=== PATIENT | male | born 1930 | race Caucasian/White ===

== ENCOUNTER → 2017-08-07 | Outpatient (CLI) | payer BC ==
[~2017-08-07] MED LIST: ACET-1311 PO; DOCU100C22 PO; FRRS300 PO; GLIM2TAB2 PO; LPT/40 PO; POLY335025 PO; SITA50TA5 PO
== END | disposition home or self-care (01) ==
LOC: C.PATHSPEC 16:22
PROVIDERS: ATTEND Dermatology
DX: C44.311 Basal cell carcinoma of skin of nose (principal)

== ENCOUNTER → 2017-09-22 | Outpatient (CLI) | payer BC | END | disposition home or self-care (01) | LOC: C.PATHSPEC 12:49 | PROVIDERS: ATTEND Plastic Surgery | DX: C44.91 Basal cell carcinoma of skin, unspecified (principal); L57.8 Other skin changes due to chronic exposure to nonionizing radiation; L98.499 Non-pressure chronic ulcer of skin of other sites with unspecified severity ==